=== PATIENT | male | born 1990 | race Caucasian/White ===

== ENCOUNTER 2017-04-05 06:33 | Emergency (ER) | payer SELFPAY ==
[~2017-04-05] VITALS: Ht 185.4 cm; Wt 75.7 kg
[2017-04-05 06:37] VITALS: TEMP 36.8; Ht 185.4 cm; Wt 75.7 kg
[2017-04-05] MEDS ORDERED: ONDANSETRON INJ 2 MG/ML 2 ML VIAL IV STA (06:50)
[2017-04-05] MEDS ORDERED: LORAZEPAM 2 MG/ML 1 ML VIAL IV STA ×2 (06:50→07:51)
[2017-04-05] MEDS ORDERED: SODIUM CHLORIDE 0.9% 1000ML 1,000 ML IV STA (06:50)
[2017-04-05 07:00] VITALS: O2SAT 99
--- NOTE | 2017-04-05 07:07 | EMERGENCY ROOM VISIT NOTE ---
History Report prepared by Reg: Keisha Manzo Under the Supervision of: Dr. Jt Harris M.D. First contact with patient: 06:41 Chief Complaint: CHEST PAIN Stated Complaint: CHEST PAINS, LOWER BACK PAIN, VISION BLURRY NUMB History of Present Illness The patient is a 26 year old male who presents to the Emergency Room with complaints of constant chest pain that started 1 hour ago, when he woke up. He states that he was sleeping this morning when he woke up with a sharp pain in his chest. The patient states that it hurts to take a deep breath. The patient states that there is also a "tightness" in his cheek. He is also experiencing numbness and tingling in his bilateral arms. The patient states that he has history of panic attacks. The patient denies any personal history of heart diseases along with any family history of heart disease. The patient states that he smokes but he denies drug use. The patient states that he has been consuming a lot of alcohol lately. His last drink of alcohol was last night around 2129 and he has been drinking daily since he got with his . Source of History: patient Onset: 1 hour ago Position: chest Quality: sharp Timing: constant Modifying Factors (Worsening): breathing (deep) Associated Symptoms: + numbness (bilateral arms) Note: "tightness" in chest Review of Systems See HPI for pertinent positives & negatives. A total of 10 systems reviewed and were otherwise negative. Past Medical & Surgical Medical Problems: (1) Bronchitis (2) Pneumonia Family History Cancer Social History Smoking Status: Current Every Day Smoker Alcohol Use: occasionally Drug Use: none Housing Status: lives with family Occupation Status: employed Current/Historical Medications No Active Prescriptions or Reported Meds Allergies Coded Allergies: No Known Allergies (Unverified , `, 02/16/16) Physical Exam Vital Signs Date Time Temp Pulse Resp B/P (MAP) Pulse Ox O2 Delivery O2 Flow Rate FiO2 04/05/17 09:06 80 16 151/93 99 04/05/17 08:39 82 16 144/89 100 Room Air 04/05/17 07:40 82 18 146/93 98 Room Air 04/05/17 07:11 99 Room Air 04/05/17 07:00 99 Room Air 04/05/17 06:56 95 04/05/17 06:37 36.8 98 24 141/97 99 Room Air Physical Exam GENERAL: Patient is a healthy-appearing well-nourished male. Patient is diaphoretic and hyperventilating on exam. HEAD: Normocephalic atraumatic EYES: Ocular movements intact pupils equal and react to light OROPHARYNX mucous membranes are moist no exudates present no erythema or edema present NECK: Supple no nuchal rigidity CHEST: Good equal expansion LUNGS: Clear and equal to auscultation CARDIAC: Normal S1 and S2 ABDOMEN: Soft nontender no guarding BACK: No CVA tenderness EXTREMITIES: Multiple puncture wounds all the way up his arms bilaterally no pain upon palpation normal muscle strength in all groups no clubbing cyanosis or edema NEURO: Patient is following commands and answering questions appropriately. Alert and oriented x3 Cranial Nerves 2-12 grossly intact Medical Decision & Procedures ER Provider Diagnostic Interpretation: Radiology results as stated below per my review and radiologist interpretation: SOFT TISSUE NECK FINDINGS: There is no prevertebral soft tissue swelling. Epiglottis and aryepiglottic folds appear normal. Airway appears patent. There is no radiopaque foreign body. No fracture or dislocation of the cervical spine. Limited lung apices are clear. IMPRESSION: Unremarkable soft tissue of the neck radiographs. The above report was generated using voice recognition software. It may contain grammatical, syntax or spelling errors. Electronically signed by: Jones Zimmerman M.D. 04/05/2017 8:35 AM Dictated Date/Time: 04/05/2017 8:29 AM CHEST ONE VIEW PORTABLE FINDINGS: The bones soft tissues and hemidiaphragms are normal. The cardiomediastinal silhouette is normal. The lungs are clear. The pulmonary vasculature is normal. IMPRESSION: Negative chest. The above report was generated using voice recognition software. It may contain grammatical, syntax or spelling errors. Electronically signed by: Ej Dean M.D. 04/05/2017 7:13 AM Dictated Date/Time: 04/05/2017 7:12 AM Laboratory Results 04/05/17 07:00 Red Blood Count 5.22, Mean Corpuscular Volume 88.5, Mean Corpuscular Hemoglobin 31.4, Mean Corpuscular Hemoglobin Concent 35.5, Mean Platelet Volume 10.0, Neutrophils (%) (Auto) 77.0, Lymphocytes (%) (Auto) 17.0, Monocytes (%) (Auto) 5.1, Eosinophils (%) (Auto) 0.3, Basophils (%) (Auto) 0.3, Neutrophils # (Auto) 9.07, Lymphocytes # (Auto) 2.00, Monocytes # (Auto) 0.60, Eosinophils # (Auto) 0.03, Basophils # (Auto) 0.03 04/05/17 07:00 Test 04/05/17 07:00 04/05/17 07:01 04/05/17 07:06 04/05/17 07:59 White Blood Count 11.77 K/uL (4.8-10.8) Red Blood Count 5.22 M/uL (4.7-6.1) Hemoglobin 16.4 g/dL (14.0-18.0) Hematocrit 46.2 % (42-52) Mean Corpuscular Volume 88.5 fL (80-100) Mean Corpuscular Hemoglobin 31.4 pg (25-34) Mean Corpuscular Hemoglobin Concent 35.5 g/dl (32-36) Platelet Count 243 K/uL (130-400) Mean Platelet Volume 10.0 fL (7.4-10.4) Neutrophils (%) (Auto) 77.0 % Lymphocytes (%) (Auto) 17.0 % Monocytes (%) (Auto) 5.1 % Eosinophils (%) (Auto) 0.3 % Basophils (%) (Auto) 0.3 % Neutrophils # (Auto) 9.07 K/uL (1.4-6.5) Lymphocytes # (Auto) 2.00 K/uL (1.2-3.4) Monocytes # (Auto) 0.60 K/uL (0.11-0.59) Eosinophils # (Auto) 0.03 K/uL (0-0.5) Basophils # (Auto) 0.03 K/uL (0-0.2) RDW Standard Deviation 38.9 fL (36.4-46.3) RDW Coefficient of Variation 12.2 % (11.5-14.5) Immature Granulocyte % (Auto) 0.3 % Immature Granulocyte # (Auto) 0.04 K/uL (0.00-0.02) Est Creatinine Clear Calc Drug Dose 107.1 ml/min Estimated GFR () 105.3 Estimated GFR (Non- 90.9 BUN/Creatinine Ratio 18.8 (10-20) Calcium Level 10.4 mg/dl (8.5-10.1) Total Bilirubin 0.9 mg/dl (0.2-1) Direct Bilirubin 0.2 mg/dl (0-0.2) Aspartate Amino Transf (AST/SGOT) 14 U/L (15-37) Alanine Aminotransferase (ALT/SGPT) 24 U/L (12-78) Alkaline Phosphatase 83 U/L (45-117) Total Creatine Kinase 87 U/L (39-308) Creatine Kinase MB < 0.5 ng/ml (0.5-3.6) Creatine Kinase MB Ratio (0-3.0) Total Protein 9.7 gm/dl (6.4-8.2) Albumin 4.5 gm/dl (3.4-5.0) Lipase 155 U/L (73-393) Bedside Hemoglobin 17.7 g/dl (14.0-18.0) Bedside Hematocrit 52 % (42-52) Bedside Sodium 139 mEq/L (135-144) Bedside Potassium 5.4 mEq/L (3.3-5.0) Bedside Chloride 108 mEq/L (101-112) Bedside Total CO2 23 mEq/l (24-31) Anion Gap 14.0 mmol/L (16-25) Bedside Blood Urea Nitrogen 29 mg/dl (7-18) Bedside Creatinine 0.9 mg/dl (0.6-1.3) Bedside Glucose (other) 93 mg/dl (70-99) Bedside Ionized Calcium (Ho) 0.98 mmol/l (1.12-1.32) Bedside D-Dimer 385 ng/mlFEU (0-450) Troponin I < 0.015 ng/ml (0-0.045) Ethyl Alcohol mg/dL < 3.0 mg/dl (0-3) Labs reviewed by ED physician. Medications Administered Medications (Trade) Dose Ordered Sig/Yanet Route Start Time Stop Time Status Last Admin Dose Admin Sodium Chloride 1,000 ml @ 999 mls/hr Q1H1M STAT IV 04/05/17 06:50 04/05/17 07:50 DC 04/05/17 06:50 999 MLS/HR Lorazepam (Ativan Inj) 1 mg NOW STAT IV 04/05/17 06:50 04/05/17 06:53 DC 04/05/17 07:14 1 MG Ondansetron HCl (Zofran Inj) 4 mg NOW STAT IV 04/05/17 06:50 04/05/17 06:53 DC 04/05/17 07:14 4 MG Potassium Chloride (Klor-Con M10) 40 meq NOW STAT PO 04/05/17 07:43 04/05/17 07:44 DC 04/05/17 08:04 40 MEQ Famotidine (Pepcid Tab) 20 mg NOW STAT PO 04/05/17 07:52 04/05/17 07:54 DC 04/05/17 08:08 20 MG Sucralfate (Carafate Tab) 1 gm NOW STAT PO 04/05/17 07:52 04/05/17 07:54 DC 04/05/17 08:06 1 GM Al Hydroxide/Mg Hydroxide (Maalox Susp) 30 ml STK-MED ONCE .ROUTE 04/05/17 08:00 04/05/17 08:02 DC 04/05/17 08:04 30 ML Lidocaine HCl (Viscous Lidocaine 2% Soln) 20 ml STK-MED ONCE .ROUTE 04/05/17 08:01 04/05/17 08:02 DC 04/05/17 08:04 20 ML ECG Indication: chest pain Rate (beats per minute): 84 Rhythm: normal sinus Findings: no acute ischemic change, no ectopy Change: Second EKG on 04/05/2017 revealed a normal sinus rhythm, rate of 90, no acute ischemic changes, no ectopy, unchanged from first EKG ED Course 0646: Past medical records reviewed. The patient was evaluated in room A11. A complete history and physical examination was performed. 0650: Ordered Zofran Inj 4 mg IV, Ativan Inj 1 mg IV, Sodium Chloride 1000 ml @ 999 mls/hr IV 0743: Ordered Klor-Con M10 40 meq PO 0747: I reassessed the patient. He is still experiencing chest pain so I am going to repeat an EKG. 0751: Ordered Ativan Inj 1 mg IV 0752: Ordered Carafate Tab 1 gm PO, Pepcid Tab 1 gm PO 0800: Ordered Maalox Susp 30 ml PO 0801: Ordered Lidocaine HCl 20 ml PO 0842: Upon reexamination the patient is doing well. I discussed results and treatment plan with the patient. I also offered counseling for anxiety and drugs and alcohol but he refused both. He verbalizes agreement and understanding. The patient is ready for discharge. Medical Decision Differential diagnosis: Etiologies such as cardiac ischemia, aortic dissection, pulmonary embolism, pneumonia, pneumothorax, musculoskeletal, infections, pericarditis, myocarditis , esophageal rupture, gastrointestinal, as well as others were entertained. This is a 26-year-old male who presents emergency department complaining of chest pain. Upon arrival to the emergency department the patient is hyperventilating and I believe that this is the cause of most symptoms. Serial EKGs as well as serial troponins were obtained in the emergency department and they both remained unchanged. In addition the patient has a normal d-dimer. He was given a GI cocktail Pepcid and Carafate as well as Ativan. Repeat examination revealed much improvement patient's symptoms. I do feel that the patient can be safely discharged home for follow-up this primary care physician. Patient was in agreement with the treatment plan. I also offered alcohol and drug counseling to this patient along with Afrin counseling for his anxiety however the patient declined. He denied being suicidal or homicidal at the time of discharge. Medication Reconcilliation Current Medication List: was personally reviewed by me Blood Pressure Screening Patient's blood pressure: Elevated blood pressure Blood pressure disposition: Referred to PCP Impression Primary Impression: Precordial chest pain Additional Impression: Hypertension Scribe Attestation The scribe's documentation has been prepared under my direction and personally reviewed by me in its entirety. I confirm that the note above accurately reflects all work, treatment, procedures, and medical decision making performed by me. Departure Information Dispostion Home / Self-Care Prescriptions No Active Prescriptions or Reported Meds Referrals No Doctor, Assigned (PCP) Forms HOME CARE DOCUMENTATION FORM, IMPORTANT VISIT INFORMATION Patient Instructions Chest Pain - [facility], Hypertension Dc, My [facility] Additional Instructions Follow up with Dr Wolff's office No strenuous activity until follow up You were found to have an elevated blood pressure today (>120 sytolic or >90 diastolic). Per medicare guidelines, you need to follow up with this blood pressure screening with your Primary Care Physician (PCP). For a new PCP call [phone]. You received narcotic or benzodiazepene medication while in the emergency room today. Do not drive, operate heavy machinery, or drink alcohol under the influence of this medication. You have been examined and treated today on an emergency basis only. This is not a substitute for, or an effort to provide, complete comprehensive medical care. It is impossible to recognize and treat all injuries or illnesses in a single emergency department visit. It is therefore important that you follow up closely with your PCP. Call as soon as possible for an appointment. Thank you for your time and consideration. I look forward to speaking with you again soon. Please don't hesitate to call us if you have any questions. Problem Qualifiers Additional Impression: Hypertension Hypertension type: unspecified Qualified Codes: I10 - Essential (primary) hypertension
[2017-04-05 07:14] LABS: ISTAT CREATININE 0.9 mg/dl (0.6-1.3); ISTAT HEMOGLOBIN 17.7 g/dl (14.0-18.0); ISTAT IONIZED CALCIUM 0.98 mmol/l (1.12-1.32)
--- NOTE | 2017-04-05 07:14 | DIAGNOSTIC IMAGING REPORT ---
CHEST ONE VIEW PORTABLE CLINICAL HISTORY: CHEST PAIN pain COMPARISON STUDY: No previous studies for comparison. FINDINGS: The bones soft tissues and hemidiaphragms are normal. The cardiomediastinal silhouette is normal. The lungs are clear. The pulmonary vasculature is normal. IMPRESSION: Negative chest. The above report was generated using voice recognition software. It may contain grammatical, syntax or spelling errors. Electronically signed by: Ej Dean M.D. 04/05/2017 7:13 AM Dictated Date/Time: 04/05/2017 7:12 AM
[2017-04-05 07:18] LABS: BASO % 0.3 %; BASO ABS # 0.03 K/uL (0-0.2); COMPLETE YES; EOS % 0.3 %; HEMATOCRIT 46.2 % (42-52); IG% 0.3 %; MEAN CELL VOLUME 88.5 fL (80-100); MEAN CORPUSCULAR HEMOGLOBIN 31.4 pg (25-34); MEAN CORPUSCULAR HGB CONC 35.5 g/dl (32-36); MONO % 5.1 %; PLATELET COUNT 243 K/uL (130-400); RED BLOOD COUNT 5.22 M/uL (4.7-6.1); WHITE BLOOD COUNT 11.77 K/uL (4.8-10.8)
[2017-04-05 07:37] LABS: ALT/SGPT 24 U/L (12-78); BLOOD UREA NITROGEN 21 mg/dl (7-18); BUN/CREATININE RATIO 18.8 (10-20); CALCIUM 10.4 mg/dl (8.5-10.1); CARBON DIOXIDE 25 mmol/L (21-32); CHLORIDE 106 mmol/L (98-107); GLUCOSE 96 mg/dl (70-99); POTASSIUM 3.3 mmol/L (3.5-5.1); SODIUM 139 mmol/L (136-145)
[2017-04-05 07:42] LABS: ALKALINE PHOSPHATASE 83 U/L (45-117); AST/SGOT 14 U/L (15-37)
[2017-04-05] MEDS ORDERED: POTASSIUM CHLORIDE 10 MEQ TABCR PO STA (07:43)
[2017-04-05] MEDS ORDERED: SUCRALFATE 1 GM TAB PO STA (07:52)
[2017-04-05] MEDS ORDERED: GI COCKTAIL PO STA (07:52)
[2017-04-05] MEDS ORDERED: FAMOTIDINE 20 MG TAB PO STA (07:52)
[2017-04-05] MEDS ORDERED: ALUMINUM/MAGNESIUM SUSP 30 ML UDC ONE (08:00)
[2017-04-05] MEDS ORDERED: LIDOCAINE HCL 2% VISC SOLN 20 ML UDC ONE (08:01)
--- NOTE | 2017-04-05 08:37 | DIAGNOSTIC IMAGING REPORT ---
SOFT TISSUE NECK HISTORY: 26 years-old Male acute left-sided neck pain, radiating into the left jaw COMPARISON: CT head 02/16/2016 TECHNIQUE: AP and lateral views of the soft tissues of the neck FINDINGS: There is no prevertebral soft tissue swelling. Epiglottis and aryepiglottic folds appear normal. Airway appears patent. There is no radiopaque foreign body. No fracture or dislocation of the cervical spine. Limited lung apices are clear. IMPRESSION: Unremarkable soft tissue of the neck radiographs. The above report was generated using voice recognition software. It may contain grammatical, syntax or spelling errors. Electronically signed by: Jones Zimmerman M.D. 04/05/2017 8:35 AM Dictated Date/Time: 04/05/2017 8:29 AM
[2017-04-05 09:06] VITALS: BP 151/93; PULSE 80; O2SAT 99
== END 2017-04-05 09:07 | disposition home or self-care (01) ==
LOC: C.EDB 06:35 → C.EDA 09:07
DX: R07.2 Precordial pain (principal); I10 Essential (primary) hypertension; F17.210 Nicotine dependence, cigarettes, uncomplicated; Z87.01 Personal history of pneumonia (recurrent); Z80.9 Family history of malignant neoplasm, unspecified